=== PATIENT | male | born 1950 | race Caucasian/White ===

== ENCOUNTER 2019-08-16 18:32 | Inpatient (IN) | payer MEDICARE ==
[2019-08-17] MEDS ORDERED: Magnesium Hydroxide (MOM) 30 mL UDC PO PRN (01:45)
[2019-08-17] MEDS ORDERED: Maalox 30 mL Cup PO PRN (01:45)
[2019-08-17] MEDS: Multivitamin Tab PO SCH (08:26)
--- NOTE | 2019-08-17 10:10 | History and Physical ---
History of Present Illness - HPI Chief Complaint: Psychosis HPI: 69 y/o homeless man transferred to [facility] from [facility] for suicidal ideations, alcohol abuse, and 5150 hold, for danger to himself. While in the [facility] ER patient had initial labwork done WBC 7.6 H/H 11.1/34.9 Plat 166K Na 142 K 4.0 Bun 19 Cr 0.7 glu 96 AST 48 ALT 26 Alk carlos [address] head no acute bleed, deep white matter changes consistent with microvascular ischemic disease Patient has a past medical history for bipolar disorder, alcoholism. 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 Psych: Report: Anxiety, Bipolar Musculoskeletal: Report: No Pertinent Hx Rheumatologic: Report: No pertinent Hx Infectious Disease: Report: No Pertinent Hx Renal/: Report: No Pertinent Hx Endocrine: Report: No Pertinent Hx Dermatology: Report: No Pertinent Hx - Past Surgical History Past Surgical History: No pertinent Hx Family Medical History - Family Member Mother History Unknown: Yes Father History Unknown: Yes Social History Smoke: No Alcohol: Heavy Drugs: None Lives: Homeless - Allergies Allergies/Adverse Reactions: Allergies Allergy/AdvReac Type Severity Reaction Status Date / Time No Known Allergies Allergy Verified 08/17/19 01:44 Review of Systems - Review of Systems Constitutional: Report: No Significant Eyes: Report: No Significant ENT: Report: No Significant Respiratory: Report: No Significant Cardiovascular: Report: No Significant Gastrointestinal: Report: No Significant Genitourinary: Report: No Significant Musculoskeletal: Report: No Significant Skin: Report: No Significant Neurological: Report: No Significant Physical Exam - Physical Exam HEENT: Report: Ears Nose Throat within normal limits, Pharnyx within normal limits Neck: Report: Within normal limits Cardiovascular Systems: Report: +s1/s2 noted, Regular, Rate and Rhythm Respiratory: Report: Breath Sounds are within normal limits Abdomen: Report: Non-tender to palpation Back: Report: Inspection of back is within normal limits. Extremities: Report: Non-tender to palpation. Skin: Report: Color of skin is within normal limits Neuro/Psych: Report: Mood affect is within normal limits - Assessment Assessment: 5150 homeless alcoholism suicidal ideation bipolar disorder psychosis - Plan Plan: admit to [facility]
--- NOTE | 2019-08-17 22:16 | Progress Notes ---
DATE: HISTORY OF PRESENT ILLNESS: The patient is a 69-year-old male transferred here from [facility] on a 5150 for being danger to self. The patient endorsed suicidal ideations with plan to overdose on pills, cites a long history of alcohol abuse and homelessness as primary source of distress. The patient states that he has been drinking for over 20 years and is unable to stop. MENTAL STATUS EXAMINATION: GENERAL APPEARANCE AND BEHAVIOR: The patient is resting comfortably in bed, not in acute distress. Good eye contact, cooperative with interview. Speech is normal, rate, rhythm and tone. Mood and affect: The patient described his mood as depressed and anxious. Affect is congruent. Thought process and thought content linear and logical. The patient reports to having suicidal ideations to overdose on pills. Insight and judgment is poor. DIAGNOSTIC IMPRESSION: Major depressive disorder, severe, recurrent, without psychotic features and alcohol abuse. PLAN: We will recommend continuing the patient detox, monitor for any seizures or DTs. [facility]# [id number]
--- NOTE | 2019-08-18 08:02 | General Progress Note ---
Subjective - Review of Systems Service Date: 08/18/19 Subjective: Patient is awake, alert. No acute distress. VS T98.4 P 92 BP 146/86 R 20 Objective - Physical Exam Vitals and I&O: Vital Signs Temp 98.4 F 08/18/19 06:11 Pulse 92 08/18/19 06:11 Resp 20 08/18/19 06:11 BP 146/86 08/18/19 06:11 Pulse Ox 94 08/18/19 06:11 Intake & Output 08/17/19 08/18/19 08/18/19 18:59 06:59 18:59 Intake Total 950 240 Balance 950 240 Intake: Oral 950 240 Other: # Voids 3 2 # Bowel Movements 0 Active Medications: Current Medications Acetaminophen (Tylenol) 650 mg PO Q4HR PRN PRN Reason: Mild Pain / Temp above 100 Stop: 10/16/19 01:44 Al Hydrox/Mg Hydrox/Simethicone (Maalox) 30 ml PO Q4HR PRN PRN Reason: GI DISTRESS Stop: 10/16/19 01:44 Lorazepam (Ativan) 0.5 mg PO Q4HR PRN; Protocol PRN Reason: Anxiety Stop: 09/16/19 01:44 Last Admin: 08/17/19 08:26 Dose: 0.5 mg Magnesium Hydroxide (Milk Of Magnesia) 30 ml PO HS PRN PRN Reason: Constipation Multivitamins/Vitamin C (Theragran) 1 tab PO DAILY JONO Stop: 10/16/19 08:59 Last Admin: 08/17/19 08:26 Dose: 1 tab Zolpidem Tartrate (Ambien) 5 mg PO HS PRN PRN Reason: Insomnia Stop: 10/16/19 01:44 Last Admin: 08/17/19 20:31 Dose: 5 mg Assessment/Plan - Assessment Assessment: 5150 homeless alcoholism suicidal ideation bipolar disorder psychosis BP elevated - Plan Plan: admit to [facility] will add catapres patch
[2019-08-18] MEDS: cloNIDine 0.1 mg/24 hr Tdm TD SCH (08:44)
[2019-08-18] MEDS: Multivitamin Tab PO SCH (08:44)
--- NOTE | 2019-08-19 00:46 | Progress Notes ---
DATE: 08/18/2019 SUBJECTIVE: A 69-year-old male transferred from [facility], endorsed suicidal ideations, plan to overdose on the pills. A long history of alcohol abuse, homelessness, drinking for over 20 years, concerns he may be withdrawing from alcohol. The patient very depressed ____ history of bipolar, alcoholism, homelessness, very poor sleep for 3 weeks prior to coming into the hospital, little family support. Currently has an adult son. No vitals were noted. He does not seem to be having any tremors right now. Pulse rate is relatively stable, currently also on dosing of Ativan. He does not exactly know how much he was drinking, is a little bit unclear. ASSESSMENT: Ongoing suicidal ideation, despairing, suicidal, monitoring also for any withdrawal symptoms from alcohol. Continue Ativan as needed and the clonidine patch. JOB# [id number]
--- NOTE | 2019-08-19 07:47 | General Progress Note ---
Subjective - Review of Systems Service Date: 08/19/19 Subjective: Patient is awake, alert. No acute distress. VS T98.6 P 81 BP 138/78 R 20 Objective - Physical Exam Vitals and I&O: Vital Signs Temp 98.6 F 08/19/19 05:48 Pulse 81 08/19/19 05:48 Resp 20 08/19/19 05:48 BP 138/78 08/19/19 05:48 Pulse Ox 97 08/19/19 05:48 Intake & Output 08/18/19 08/19/19 08/19/19 18:59 06:59 18:59 Intake Total 240 Balance 240 Intake: Oral 240 Other: # Voids 1 2 # Bowel Movements 2 Active Medications: Current Medications Acetaminophen (Tylenol) 650 mg PO Q4HR PRN PRN Reason: Mild Pain (Scale 1-3) Stop: 10/16/19 01:44 Last Admin: 08/18/19 18:05 Dose: 650 mg Acetaminophen (Tylenol) 650 mg PO Q4HR PRN PRN Reason: TEMP ABOVE 100 Stop: 10/17/19 11:33 Al Hydrox/Mg Hydrox/Simethicone (Maalox) 30 ml PO Q4HR PRN PRN Reason: GI DISTRESS Stop: 10/16/19 01:44 Clonidine HCl (Mutqyepj-Ats-6) 1 patch TD Mo JONO Stop: 10/17/19 08:59 Last Admin: 08/18/19 08:44 Dose: 1 patch Lorazepam (Ativan) 0.5 mg PO Q4HR PRN; Protocol PRN Reason: Anxiety Stop: 09/16/19 01:44 Last Admin: 08/18/19 21:27 Dose: 0.5 mg Magnesium Hydroxide (Milk Of Magnesia) 30 ml PO HS PRN PRN Reason: Constipation Multivitamins/Vitamin C (Theragran) 1 tab PO DAILY JONO Stop: 10/16/19 08:59 Last Admin: 08/18/19 08:44 Dose: 1 tab Trazodone HCl (Desyrel) 50 mg PO HS JONO; Protocol Stop: 10/17/19 20:59 Last Admin: 08/18/19 21:27 Dose: 50 mg General: Alert, Oriented x3, No acute distress HEENT: Atraumatic, PERRLA, EOMI Neck: Supple Cardiovascular: Regular rate Lungs: Clear to auscultation Abdomen: Bowel sounds, Soft, no Distended Extremities: no Clubbing, no Cyanosis, no Edema Assessment/Plan - Assessment Assessment: 5150 homeless alcoholism suicidal ideation bipolar disorder psychosis BP improved - Plan Plan: admit to [facility] will add catapres patch
[2019-08-19] MEDS: Multivitamin Tab PO SCH (08:54)
--- NOTE | 2019-08-19 20:54 | Progress Notes ---
DATE: 08/19/2019 SUBJECTIVE: The patient is still withdrawing from alcohol. Mild tremors. Still depressed, hopeless, despairing, ongoing SI, psychological distress, turmoil, mostly keeps to self, withdrawn. We will initiate a 14-day hold. ASSESSMENT: The patient is homeless, despairing, ongoing symptoms, safety concerns. [facility]# [id number]
--- NOTE | 2019-08-20 08:01 | General Progress Note ---
Subjective - Review of Systems Service Date: 08/20/19 Subjective: Patient is awake, alert. No acute distress. VS T98.6 P 83 BP 143/80 R 18 Objective - Physical Exam Vitals and I&O: Vital Signs Temp 98.7 F 08/20/19 06:30 Pulse 83 08/20/19 06:30 Resp 18 08/20/19 06:30 BP 143/80 08/20/19 06:30 Pulse Ox 96 08/20/19 06:30 Intake & Output 08/19/19 08/20/19 08/20/19 18:59 06:59 18:59 Intake Total 800 120 Balance 800 120 Intake: Oral 800 120 Other: # Voids 3 Active Medications: Current Medications Acetaminophen (Tylenol) 650 mg PO Q4HR PRN PRN Reason: Mild Pain (Scale 1-3) Stop: 10/16/19 01:44 Last Admin: 08/19/19 14:58 Dose: 650 mg Acetaminophen (Tylenol) 650 mg PO Q4HR PRN PRN Reason: TEMP ABOVE 100 Stop: 10/17/19 11:33 Al Hydrox/Mg Hydrox/Simethicone (Maalox) 30 ml PO Q4HR PRN PRN Reason: GI DISTRESS Stop: 10/16/19 01:44 Clonidine HCl (Pwllrmmo-Vmc-8) 1 patch TD Mo JONO Stop: 10/17/19 08:59 Last Admin: 08/18/19 08:44 Dose: 1 patch Lorazepam (Ativan) 0.5 mg PO Q4HR PRN; Protocol PRN Reason: Anxiety Stop: 09/16/19 01:44 Last Admin: 08/18/19 21:27 Dose: 0.5 mg Magnesium Hydroxide (Milk Of Magnesia) 30 ml PO HS PRN PRN Reason: Constipation Multivitamins/Vitamin C (Theragran) 1 tab PO DAILY JONO Stop: 10/16/19 08:59 Last Admin: 08/19/19 08:54 Dose: 1 tab Trazodone HCl (Desyrel) 50 mg PO HS JONO; Protocol Stop: 10/17/19 20:59 Last Admin: 08/19/19 20:18 Dose: 50 mg General: Alert, Oriented x3, No acute distress HEENT: Atraumatic, PERRLA, EOMI Neck: Supple Cardiovascular: Regular rate Lungs: Clear to auscultation Abdomen: Bowel sounds, Soft, no Distended Extremities: no Clubbing, no Cyanosis, no Edema Assessment/Plan - Assessment Assessment: 5150 homeless alcoholism suicidal ideation bipolar disorder psychosis BP elevated today - Plan Plan: admit to [facility] will add catapres patch and clonidine PO q8 PRN SBP above 150
[2019-08-20] MEDS: Multivitamin Tab PO SCH (08:14)
--- NOTE | 2019-08-21 03:08 | Progress Notes ---
DATE: The patient seen, chart reviewed, discussed with staff. The patient seems to be withdrawing from alcohol without any complications. No overt tremors noted. Still feeling "weak," erratic sleep, feeling somewhat anxious, also anxious that he has a medical problem, is homeless, nowhere to go, having a hard time walking. Mostly withdrawn, keeps to self, ongoing symptoms, psychological distress, turmoil. The patient noting he has a history of taking Lamictal, BuSpar. We will continue to monitor. The patient will likely need a place to go. Also having a hard time sleeping. We will make appropriate medication adjustments. JOB# [id number]
--- NOTE | 2019-08-21 07:51 | General Progress Note ---
Subjective - Review of Systems Service Date: 08/21/19 Subjective: Patient is awake, alert. No acute distress. Currently on wound care treatment. Poor PO intake VS T97.4 P 76 BP 139/78 R 18 Objective - Physical Exam Vitals and I&O: Vital Signs Temp 97.4 F 08/21/19 06:47 Pulse 76 08/21/19 06:47 Resp 18 08/21/19 06:47 BP 139/78 08/21/19 06:47 Pulse Ox 95 08/21/19 06:47 Intake & Output 08/20/19 08/21/19 08/21/19 18:59 06:59 18:59 Intake Total 240 Output Total 1 Balance 239 Intake: Oral 240 Output: Urine/Stool Mix 1 Other: # Voids 2 Active Medications: Current Medications Acetaminophen (Tylenol) 650 mg PO Q4HR PRN PRN Reason: Mild Pain (Scale 1-3) Stop: 10/16/19 01:44 Last Admin: 08/20/19 21:41 Dose: 650 mg Acetaminophen (Tylenol) 650 mg PO Q4HR PRN PRN Reason: TEMP ABOVE 100 Stop: 10/17/19 11:33 Al Hydrox/Mg Hydrox/Simethicone (Maalox) 30 ml PO Q4HR PRN PRN Reason: GI DISTRESS Stop: 10/16/19 01:44 Clonidine HCl (Ppdhfdty-Ktn-5) 1 patch TD Mo JONO Stop: 10/17/19 08:59 Last Admin: 08/18/19 08:44 Dose: 1 patch Lorazepam (Ativan) 0.5 mg PO Q4HR PRN; Protocol PRN Reason: Anxiety Stop: 09/16/19 01:44 Last Admin: 08/18/19 21:27 Dose: 0.5 mg Magnesium Hydroxide (Milk Of Magnesia) 30 ml PO HS PRN PRN Reason: Constipation Multivitamins/Vitamin C (Theragran) 1 tab PO DAILY JONO Stop: 10/16/19 08:59 Last Admin: 08/20/19 08:14 Dose: 1 tab Trazodone HCl (Desyrel) 50 mg PO HS JONO; Protocol Stop: 10/17/19 20:59 Last Admin: 08/20/19 20:45 Dose: 50 mg General: Alert, Oriented x3, No acute distress HEENT: Atraumatic, PERRLA, EOMI Neck: Supple Cardiovascular: Regular rate Lungs: Clear to auscultation Abdomen: Bowel sounds, Soft, no Distended Extremities: no Clubbing, no Cyanosis, no Edema Assessment/Plan - Assessment Assessment: 5150 homeless alcoholism suicidal ideation bipolar disorder psychosis BP elevated today Pressure ulcers -- Right Buttocks - Plan [facility] will [facility]res patch and clonidine PO q8 PRN SBP above 150 Wound care treatment. will add doxycycline PO Nutritional Asmnt/Malnutr-PDOC - Dietary Evaluation Malnutrition Findings (Please click <Entered> for more info): Nutritional Asmnt/Malnutrition Start: 08/20/19 09: 34 Text: Status: Complete Freq: Protocol: Document 08/20/19 09:39 ANJELICA (Rec: 08/20/19 10:01 ANJELICA ARMSTRONG- [email or web address]) Nutritional Asmnt/Malnutrition Patient General Information Nutritional Screening Low Risk Diagnosis Psychosis Pertinent Medical Hx/Surgical Hx Dementia, anxietry, bipolar Subjective Information Per H&P, patient is homeless and admitted from [facility] for suicidal ideations, alcohol abuse and 5150 hold for danger to himself. Per RN, patient not eating much, will often only eat a cookie. She states he mostly just drinks alcohol at home and doesn't eat much. Patient requesting strawberry flavored protein supplements. Current Diet Order/ Nutrition Support Regular Patient / S.O Not Indicated Pertinent Medications maalox, MOM, Theragran Pertinent Labs No current labs Nutritional Hx/Data Height 1.68 m Height (Calculated Centimeters) 167.6 Current Weight (lbs) 62.142 kg Weight (Calculated Kilograms) 62.1 Weight (Calculated Grams) 95767.2 [place] Body Weight 142 % [place] Body Weight 96 Body Mass Index (BMI) 22.1 Recent Weight Change No Weight Status Approriate GI Symptoms GI Symptoms None Last BM 1/6 x 2 Difficult in: None Food Allergies No Cultural/Ethnic/Sikh Belief none indicated Usual diet at home regular (pt homeless) Skin Integrity/Comment: Juan Waddell, per wound care notes, skin tear on right outer buttock, right upper pelvic rim and left upper pelvic rim. Chronic wound on right knee. Current %PO Poor (25-49%) Estimated Nutritional Goals BEE in Kcals: Using Current wt Calories/Kcals/Kg 62.2kg 25-30 kcal/kg Kcals Calculated ~9392-5674 kcal/day Protein: Using Current wt Protein g/k-1.2 gm/kg Protein Calculated 60-75 gm/day Fluid: ml ~3635-6782 ml/day (1 ml/kcal) Nutritional Problem 1. Problem Problem Inadequate oral intake related to Etiology possible poor appetite/ confusion aeb Signs/Symptoms: PO intake ~25% of meals Intervention/Recommendation Comments 1. Continue regular diet as tolerated by patient 2. Encourage oral intake and provide assistance with meals as needed. 3. Provide Ensure Enlive ( [place]) with each meal to optimize calorie/protein intake. 4 Continue MVI supplementation due to impaired skin integrity. Expected Outcomes/Goals Expected Outcomes/Goals oral intake >75% of meals, weight stable, nutrition related labs WNL, improved skin integrity F/U MR
[2019-08-21] MEDS: Multivitamin Tab PO SCH (09:11)
--- NOTE | 2019-08-22 02:33 | Progress Notes ---
DATE: 08/21/2019 SUBJECTIVE: A 69-year-old male, calm on exam, withdrawn. No alcohol withdrawal signs or symptoms. He is pretty depressed on exam, melancholic. Concerns about anxiety, severe depression. He also has nowhere to go. We are attempting to find him a safe place, a safe discharge plan. Vitals were noted. Mostly keeps to self, self isolation. We will continue to monitor. [facility]# [id number]
--- NOTE | 2019-08-22 08:16 | General Progress Note ---
Subjective - Review of Systems Service Date: 08/22/19 Subjective: Patient is awake, alert. No acute distress. Currently on wound care treatment. Poor PO intake VS T98.6 P 83 BP 146/71 R 18 Objective - Physical Exam Vitals and I&O: Vital Signs Temp 98.6 F 08/22/19 06:21 Pulse 83 08/22/19 06:21 Resp 18 08/22/19 06:21 BP 146/71 08/22/19 06:21 Pulse Ox 99 08/22/19 06:21 Intake & Output 08/21/19 08/22/19 08/22/19 18:59 06:59 18:59 Intake Total 1200 240 Output Total 1 Balance 1200 239 Intake: Oral 1200 240 Output: Urine/Stool Mix 1 Other: # Voids 1 # Bowel Movements 1 Active Medications: Current Medications Acetaminophen (Tylenol) 650 mg PO Q4HR PRN PRN Reason: Mild Pain (Scale 1-3) Stop: 10/16/19 01:44 Last Admin: 08/21/19 17:09 Dose: 650 mg Acetaminophen (Tylenol) 650 mg PO Q4HR PRN PRN Reason: TEMP ABOVE 100 Stop: 10/17/19 11:33 Al Hydrox/Mg Hydrox/Simethicone (Maalox) 30 ml PO Q4HR PRN PRN Reason: GI DISTRESS Stop: 10/16/19 01:44 Clonidine HCl (Zuiecltp-Xky-8) 1 patch TD Mo JONO Stop: 10/17/19 08:59 Last Admin: 08/18/19 08:44 Dose: 1 patch Doxycycline Hyclate (Vibramycin) 100 mg PO Q12HR JONO Stop: 10/20/19 08:59 Last Admin: 08/21/19 21:45 Dose: 100 mg Lorazepam (Ativan) 0.5 mg PO Q4HR PRN; Protocol PRN Reason: Anxiety Stop: 09/16/19 01:44 Last Admin: 08/18/19 21:27 Dose: 0.5 mg Magnesium Hydroxide (Milk Of Magnesia) 30 ml PO HS PRN PRN Reason: Constipation Multivitamins/Vitamin C (Theragran) 1 tab PO DAILY JONO Stop: 10/16/19 08:59 Last Admin: 08/21/19 09:11 Dose: 1 tab Trazodone HCl (Desyrel) 50 mg PO HS JONO; Protocol Stop: 10/17/19 20:59 Last Admin: 08/21/19 21:45 Dose: 50 mg General: Alert, Oriented x3, No acute distress HEENT: Atraumatic, PERRLA, EOMI Neck: Supple Cardiovascular: Regular rate Lungs: Clear to auscultation Abdomen: Bowel sounds, Soft, no Distended Extremities: no Clubbing, no Cyanosis, no Edema Assessment/Plan - Assessment Assessment: 5150 homeless alcoholism suicidal ideation bipolar disorder psychosis BP stable today Pressure ulcers -- Right Buttocks - Plan Plan: admit to [facility] will add catapres patch and clonidine PO q8 PRN SBP above 150 Wound care treatment. will add doxycycline PO Nutritional Asmnt/Malnutr-PDOC - Dietary Evaluation Malnutrition Findings (Please click <Entered> for more info): Nutritional Asmnt/Malnutrition Start: 08/20/19 09: 34 Text: Status: Complete Freq: Protocol: Document 08/20/19 09:39 ANJELICA (Rec: 08/20/19 10:01 ANJELICA ARMSTRONG- [email or web address]) Nutritional Asmnt/Malnutrition Patient General Information Nutritional Screening Low Risk Diagnosis Psychosis Pertinent Medical Hx/Surgical Hx Dementia, anxietry, bipolar Subjective Information Per H&P, patient is homeless and admitted from [facility] for suicidal ideations, alcohol abuse and 5150 hold for danger to himself. Per RN, patient not eating much, will often only eat a cookie. She states he mostly just drinks alcohol at home and doesn't eat much. Patient requesting strawberry flavored protein supplements. Current Diet Order/ Nutrition Support Regular Patient / S.O Not Indicated Pertinent Medications maalox, MOM, Theragran Pertinent Labs No current labs Nutritional Hx/Data Height 1.68 m Height (Calculated Centimeters) 167.6 Current Weight (lbs) 62.142 kg Weight (Calculated Kilograms) 62.1 Weight (Calculated Grams) 40143.2 [place] Body Weight 142 % [place] Body Weight 96 Body Mass Index (BMI) 22.1 Recent Weight Change No Weight Status Approriate GI Symptoms GI Symptoms None Last BM 1/6 x 2 Difficult in: None Food Allergies No Cultural/Ethnic/Rastafarian Belief none indicated Usual diet at home regular (pt homeless) Skin Integrity/Comment: Juan Waddell, per wound care notes, skin tear on right outer buttock, right upper pelvic rim and left upper pelvic rim. Chronic wound on right knee. Current %PO Poor (25-49%) Estimated Nutritional Goals BEE in Kcals: Using Current wt Calories/Kcals/Kg 62.2kg 25-30 kcal/kg Kcals Calculated ~0044-3434 kcal/day Protein: Using Current wt Protein g/k-1.2 gm/kg Protein Calculated 60-75 gm/day Fluid: ml ~4749-4726 ml/day (1 ml/kcal) Nutritional Problem 1. Problem Problem Inadequate oral intake related to Etiology possible poor appetite/ confusion aeb Signs/Symptoms: PO intake ~25% of meals Intervention/Recommendation Comments 1. Continue regular diet as tolerated by patient 2. Encourage oral intake and provide assistance with meals as needed. 3. Provide Ensure Enlive ( [place]) with each meal to optimize calorie/protein intake. 4 Continue MVI supplementation due to impaired skin integrity. Expected Outcomes/Goals Expected Outcomes/Goals oral intake >75% of meals, weight stable, nutrition related labs WNL, improved skin integrity F/U MR
[2019-08-22] MEDS: Multivitamin Tab PO SCH (09:18)
--- NOTE | 2019-08-22 22:56 | Progress Notes ---
DATE: 08/22/2019 SUBJECTIVE: The patient in the hospital. No alcohol withdrawal symptoms, depressed, withdrawn, weak on exam. We are working on placement, trying to get him over to [place]. Unclear if they can accept the patient. The patient really cannot take care of himself. He is just frankly too weak. PLAN: We will continue to monitor ongoing concerns about his ability to take care for his basic needs. [facility]# [id number]
--- NOTE | 2019-08-23 08:07 | General Progress Note ---
Subjective - Review of Systems Service Date: 08/23/19 Subjective: Patient is awake, alert. No acute distress. Currently on wound care treatment. Poor PO intake VS T97.6 P 74 BP 152/80 R 19 Objective - Physical Exam Vitals and I&O: Vital Signs Temp 97.6 F 08/23/19 06:24 Pulse 74 08/23/19 06:24 Resp 19 08/23/19 06:24 BP 152/80 08/23/19 06:24 Pulse Ox 94 08/23/19 06:24 Intake & Output 08/22/19 08/23/19 08/23/19 18:59 06:59 18:59 Intake Total 960 300 Output Total 1 Balance 960 299 Intake: Oral 960 300 Output: Urine/Stool Mix 1 Other: # Voids 4 1 # Bowel Movements 1 0 Active Medications: Current Medications Acetaminophen (Tylenol) 650 mg PO Q4HR PRN PRN Reason: Mild Pain (Scale 1-3) Stop: 10/16/19 01:44 Last Admin: 08/21/19 17:09 Dose: 650 mg Acetaminophen (Tylenol) 650 mg PO Q4HR PRN PRN Reason: TEMP ABOVE 100 Stop: 10/17/19 11:33 Al Hydrox/Mg Hydrox/Simethicone (Maalox) 30 ml PO Q4HR PRN PRN Reason: GI DISTRESS Stop: 10/16/19 01:44 Clonidine HCl (Jwfnkjgy-Ezd-6) 1 patch TD Mo JONO Stop: 10/17/19 08:59 Last Admin: 08/18/19 08:44 Dose: 1 patch Doxycycline Hyclate (Vibramycin) 100 mg PO Q12HR JONO Stop: 10/20/19 08:59 Last Admin: 08/22/19 21:12 Dose: 100 mg Lorazepam (Ativan) 0.5 mg PO Q4HR PRN; Protocol PRN Reason: Anxiety Stop: 09/16/19 01:44 Last Admin: 08/18/19 21:27 Dose: 0.5 mg Magnesium Hydroxide (Milk Of Magnesia) 30 ml PO HS PRN PRN Reason: Constipation Multivitamins/Vitamin C (Theragran) 1 tab PO DAILY JONO Stop: 10/16/19 08:59 Last Admin: 08/22/19 09:18 Dose: 1 tab Trazodone HCl (Desyrel) 50 mg PO HS JONO; Protocol Stop: 10/17/19 20:59 Last Admin: 08/22/19 21:13 Dose: 50 mg General: Alert, Oriented x3, No acute distress HEENT: Atraumatic, PERRLA, EOMI Neck: Supple Cardiovascular: Regular rate Lungs: Clear to auscultation Abdomen: Bowel sounds, Soft, no Distended Extremities: no Clubbing, no Cyanosis, no Edema Assessment/Plan - Assessment Assessment: 5150 homeless alcoholism suicidal ideation bipolar disorder psychosis BP stable today Pressure ulcers -- Right Buttocks - Plan Plan: admit to ger[facility]che will add catapres patch and clonidine PO q8 PRN SBP above 150 Wound care treatment. will add doxycycline PO Nutritional Asmnt/Malnutr-PDOC - Dietary Evaluation Malnutrition Findings (Please click <Entered> for more info): Nutritional Asmnt/Malnutrition Start: 08/20/19 09: 34 Text: Status: Complete Freq: Protocol: Document 08/20/19 09:39 ANJELICA (Rec: 08/20/19 10:01 ANJELICA ARMSTRONG- FNS1) Nutritional Asmnt/Malnutrition Patient General Information Nutritional Screening Low Risk Diagnosis Psychosis Pertinent Medical Hx/Surgical Hx Dementia, anxietry, bipolar Subjective Information Per H&P, patient is homeless and admitted from [facility] for suicidal ideations, alcohol abuse and 5150 hold for danger to himself. Per RN, patient not eating much, will often only eat a cookie. She states he mostly just drinks alcohol at home and doesn't eat much. Patient requesting strawberry flavored protein supplements. Current Diet Order/ Nutrition Support Regular Patient / S.O Not Indicated Pertinent Medications maalox, MOM, Theragran Pertinent Labs No current labs Nutritional Hx/Data Height 1.68 m Height (Calculated Centimeters) 167.6 Current Weight (lbs) 62.142 kg Weight (Calculated Kilograms) 62.1 Weight (Calculated Grams) 20873.2 [place] Body Weight 142 % [place] Body Weight 96 Body Mass Index (BMI) 22.1 Recent Weight Change No Weight Status Approriate GI Symptoms GI Symptoms None Last BM 1/6 x 2 Difficult in: None Food Allergies No Cultural/Ethnic/Hinduism Belief none indicated Usual diet at home regular (pt homeless) Skin Integrity/Comment: Juan Waddell, per wound care notes, skin tear on right outer buttock, right upper pelvic rim and left upper pelvic rim. Chronic wound on right knee. Current %PO Poor (25-49%) Estimated Nutritional Goals BEE in Kcals: Using Current wt Calories/Kcals/Kg 62.2kg 25-30 kcal/kg Kcals Calculated ~7586-2339 kcal/day Protein: Using Current wt Protein g/k-1.2 gm/kg Protein Calculated 60-75 gm/day Fluid: ml ~3699-5769 ml/day (1 ml/kcal) Nutritional Problem 1. Problem Problem Inadequate oral intake related to Etiology possible poor appetite/ confusion aeb Signs/Symptoms: PO intake ~25% of meals Intervention/Recommendation Comments 1. Continue regular diet as tolerated by patient 2. Encourage oral intake and provide assistance with meals as needed. 3. Provide Ensure Enlive ( [place]) with each meal to optimize calorie/protein intake. 4 Continue MVI supplementation due to impaired skin integrity. Expected Outcomes/Goals Expected Outcomes/Goals oral intake >75% of meals, weight stable, nutrition related labs WNL, improved skin integrity F/U MR
[2019-08-23] MEDS: Multivitamin Tab PO SCH (08:58)
--- NOTE | 2019-08-23 23:34 | Progress Notes ---
DATE: 08/23/[address] Schulz. IDENTIFYING DATA: A 69-year-old male with history of suicidal ideation with plan to overdose. Today on pzum-zy-gexe evaluation, continues to present withdrawn, sad. Alcohol withdrawal symptoms noted by the nursing staff. MENTAL STATUS EXAMINATION: Still sad, withdrawn, disengaged. ASSESSMENT AND PLAN: Major depressive disorder. We will continue with primary psychiatrist's treatment plan and goals, which includes monitoring for withdrawal symptoms. [facility]# [id number] [id number]
--- NOTE | 2019-08-24 08:17 | General Progress Note ---
Subjective - Review of Systems Service Date: 08/24/19 Subjective: Patient is awake, alert. No acute distress. Currently on wound care treatment. Poor PO intake VS T97.8 P 70 BP 133/85 R 18 Objective - Physical Exam Vitals and I&O: Vital Signs Temp 97.8 F 08/24/19 06:42 Pulse 70 08/24/19 06:42 Resp 18 08/24/19 06:42 BP 133/85 08/24/19 06:42 Pulse Ox 96 08/24/19 06:42 Intake & Output 08/23/19 08/24/19 08/24/19 18:59 06:59 18:59 Intake Total 860 60 Balance 860 60 Intake: Oral 860 60 Other: # Voids 3 2 # Bowel Movements 0 0 Active Medications: Current Medications Acetaminophen (Tylenol) 650 mg PO Q4HR PRN PRN Reason: Mild Pain (Scale 1-3) Stop: 10/16/19 01:44 Last Admin: 08/23/19 18:10 Dose: 650 mg Acetaminophen (Tylenol) 650 mg PO Q4HR PRN PRN Reason: TEMP ABOVE 100 Stop: 10/17/19 11:33 Al Hydrox/Mg Hydrox/Simethicone (Maalox) 30 ml PO Q4HR PRN PRN Reason: GI DISTRESS Stop: 10/16/19 01:44 Clonidine HCl (Qzbwyeze-Rqp-7) 1 patch TD Mo JONO Stop: 10/17/19 08:59 Last Admin: 08/18/19 08:44 Dose: 1 patch Doxycycline Hyclate (Vibramycin) 100 mg PO Q12HR JONO Stop: 10/20/19 08:59 Last Admin: 08/23/19 21:11 Dose: 100 mg Lorazepam (Ativan) 0.5 mg PO Q4HR PRN; Protocol PRN Reason: Anxiety Stop: 09/16/19 01:44 Last Admin: 08/18/19 21:27 Dose: 0.5 mg Multivitamins/Vitamin C (Theragran) 1 tab PO DAILY JONO Stop: 10/16/19 08:59 Last Admin: 08/23/19 08:58 Dose: 1 tab Trazodone HCl (Desyrel) 50 mg PO HS JONO; Protocol Stop: 10/17/19 20:59 Last Admin: 08/23/19 21:11 Dose: 50 mg General: Alert, Oriented x3, No acute distress HEENT: Atraumatic, PERRLA, EOMI Neck: Supple Cardiovascular: Regular rate Lungs: Clear to auscultation Abdomen: Bowel sounds, Soft, no Distended Extremities: no Clubbing, no Cyanosis, no Edema Assessment/Plan - Assessment Assessment: 5150 homeless alcoholism suicidal ideation bipolar disorder psychosis BP stable today Pressure ulcers -- Right Buttocks ... continue current treatment. - Plan Plan: admit to [facility] will add catapres patch and clonidine PO q8 PRN SBP above 150 Wound care treatment. will add doxycycline PO Nutritional Asmnt/Malnutr-PDOC - Dietary Evaluation Malnutrition Findings (Please click <Entered> for more info): Nutritional Asmnt/Malnutrition Start: 08/20/19 09: 34 Text: Status: Complete Freq: Protocol: Document 08/20/19 09:39 MMALIREZA (Rec: 08/20/19 10:01 MMALIREZA ARMSTRONG- [email or web address]) Nutritional Asmnt/Malnutrition Patient General Information Nutritional Screening Low Risk Diagnosis Psychosis Pertinent Medical Hx/Surgical Hx Dementia, anxietry, bipolar Subjective Information Per H&P, patient is homeless and admitted from [facility] for suicidal ideations, alcohol abuse and 5150 hold for danger to himself. Per RN, patient not eating much, will often only eat a cookie. She states he mostly just drinks alcohol at home and doesn't eat much. Patient requesting strawberry flavored protein supplements. Current Diet Order/ Nutrition Support Regular Patient / S.O Not Indicated Pertinent Medications maalox, MOM, Theragran Pertinent Labs No current labs Nutritional Hx/Data Height 1.68 m Height (Calculated Centimeters) 167.6 Current Weight (lbs) 62.142 kg Weight (Calculated Kilograms) 62.1 Weight (Calculated Grams) 28916.2 [place] Body Weight 142 % [place] Body Weight 96 Body Mass Index (BMI) 22.1 Recent Weight Change No Weight Status Approriate GI Symptoms GI Symptoms None Last BM 1/6 x 2 Difficult in: None Food Allergies No Cultural/Ethnic/Sikh Belief none indicated Usual diet at home regular (pt homeless) Skin Integrity/Comment: Juan Waddell, per wound care notes, skin tear on right outer buttock, right upper pelvic rim and left upper pelvic rim. Chronic wound on right knee. Current %PO Poor (25-49%) Estimated Nutritional Goals BEE in Kcals: Using Current wt Calories/Kcals/Kg 62.2kg 25-30 kcal/kg Kcals Calculated ~0975-7140 kcal/day Protein: Using Current wt Protein g/k-1.2 gm/kg Protein Calculated 60-75 gm/day Fluid: ml ~1217-1005 ml/day (1 ml/kcal) Nutritional Problem 1. Problem Problem Inadequate oral intake related to Etiology possible poor appetite/ confusion aeb Signs/Symptoms: PO intake ~25% of meals Intervention/Recommendation Comments 1. Continue regular diet as tolerated by patient 2. Encourage oral intake and provide assistance with meals as needed. 3. Provide Ensure Enlive ( [place]) with each meal to optimize calorie/protein intake. 4 Continue MVI supplementation due to impaired skin integrity. Expected Outcomes/Goals Expected Outcomes/Goals oral intake >75% of meals, weight stable, nutrition related labs WNL, improved skin integrity F/U MR
--- NOTE | 2019-08-24 08:53 | Progress Notes ---
DATE: 08/24/[address] Schulz. Today on wfda-ss-saco evaluation, he is observed to be avoiding disengage. No withdrawal symptoms reported in the last 24 hours. MENTAL STATUS EXAMINATION: Disengaged, withdrawn, melancholic. ASSESSMENT AND PLAN: Major depressive disorder, severe. We will continue with primary psychiatrist's treatment plan and goals and to monitor for residual symptoms. [facility]# [id number]
[2019-08-24] MEDS: Multivitamin Tab PO SCH (08:57)
--- NOTE | 2019-08-25 08:06 | General Progress Note ---
Subjective - Review of Systems Service Date: 08/25/19 Subjective: Patient is awake, alert. No acute distress. Currently on wound care treatment. Poor PO intake VS T 98.2 P 79 BP 132/84 R 20 Objective - Physical Exam Vitals and I&O: Vital Signs Temp 98.2 F 08/25/19 06:03 Pulse 79 08/25/19 06:03 Resp 18 08/25/19 07:36 BP 132/84 08/25/19 06:03 Pulse Ox 96 08/25/19 06:03 Intake & Output 08/24/19 08/25/19 08/25/19 18:59 06:59 18:59 Intake Total 240 Balance 240 Intake: Oral 240 Other: # Voids 2 2 # Bowel Movements 6 Active Medications: Current Medications Acetaminophen (Tylenol) 650 mg PO Q4HR PRN PRN Reason: Mild Pain (Scale 1-3) Stop: 10/16/19 01:44 Last Admin: 08/25/19 06:26 Dose: 650 mg Acetaminophen (Tylenol) 650 mg PO Q4HR PRN PRN Reason: TEMP ABOVE 100 Stop: 10/17/19 11:33 Al Hydrox/Mg Hydrox/Simethicone (Maalox) 30 ml PO Q4HR PRN PRN Reason: GI DISTRESS Stop: 10/16/19 01:44 Clonidine HCl (Gzgxtxav-Njn-0) 1 patch TD Mo JONO Stop: 10/17/19 08:59 Last Admin: 08/18/19 08:44 Dose: 1 patch Doxycycline Hyclate (Vibramycin) 100 mg PO Q12HR JONO Stop: 10/20/19 08:59 Last Admin: 08/24/19 21:11 Dose: 100 mg Lorazepam (Ativan) 0.5 mg PO Q4HR PRN; Protocol PRN Reason: Anxiety Stop: 09/16/19 01:44 Last Admin: 08/18/19 21:27 Dose: 0.5 mg Multivitamins/Vitamin C (Theragran) 1 tab PO DAILY JONO Stop: 10/16/19 08:59 Last Admin: 08/24/19 08:57 Dose: 1 tab Trazodone HCl (Desyrel) 50 mg PO HS JONO; Protocol Stop: 10/17/19 20:59 Last Admin: 08/24/19 21:11 Dose: 50 mg General: Alert, Oriented x3, No acute distress HEENT: Atraumatic, PERRLA, EOMI Neck: Supple Cardiovascular: Regular rate Lungs: Clear to auscultation Abdomen: Bowel sounds, Soft, no Distended Extremities: no Clubbing, no Cyanosis, no Edema Assessment/Plan - Assessment Assessment: 5150 homeless alcoholism suicidal ideation bipolar disorder psychosis BP stable today Pressure ulcers -- Right Buttocks ... continue current treatment. constipation ... on stool softeners, KUB pending - Plan Plan: admit to ger[facility] will add catapres patch and clonidine PO q8 PRN SBP above 150 Wound care treatment. will add doxycycline PO KUB taken, results pending Nutritional Asmnt/Malnutr-PDOC - Dietary Evaluation Malnutrition Findings (Please click <Entered> for more info): Nutritional Asmnt/Malnutrition Start: 08/20/19 09: 34 Text: Status: Complete Freq: Protocol: Document 08/20/19 09:39 ANJELICA (Rec: 08/20/19 10:01 ANJELICA ARMSTRONG- FNS1) Nutritional Asmnt/Malnutrition Patient General Information Nutritional Screening Low Risk Diagnosis Psychosis Pertinent Medical Hx/Surgical Hx Dementia, anxietry, bipolar Subjective Information Per H&P, patient is homeless and admitted from [facility] for suicidal ideations, alcohol abuse and 5150 hold for danger to himself. Per RN, patient not eating much, will often only eat a cookie. She states he mostly just drinks alcohol at home and doesn't eat much. Patient requesting strawberry flavored protein supplements. Current Diet Order/ Nutrition Support Regular Patient / S.O Not Indicated Pertinent Medications maalox, MOM, Theragran Pertinent Labs No current labs Nutritional Hx/Data Height 1.68 m Height (Calculated Centimeters) 167.6 Current Weight (lbs) 62.142 kg Weight (Calculated Kilograms) 62.1 Weight (Calculated Grams) 04010.2 [place] Body Weight 142 % [place] Body Weight 96 Body Mass Index (BMI) 22.1 Recent Weight Change No Weight Status Approriate GI Symptoms GI Symptoms None Last BM 1/6 x 2 Difficult in: None Food Allergies No Cultural/Ethnic/Taoism Belief none indicated Usual diet at home regular (pt homeless) Skin Integrity/Comment: Juan Waddell, per wound care notes, skin tear on right outer buttock, right upper pelvic rim and left upper pelvic rim. Chronic wound on right knee. Current %PO Poor (25-49%) Estimated Nutritional Goals BEE in Kcals: Using Current wt Calories/Kcals/Kg 62.2kg 25-30 kcal/kg Kcals Calculated ~0503-6906 kcal/day Protein: Using Current wt Protein g/k-1.2 gm/kg Protein Calculated 60-75 gm/day Fluid: ml ~0337-0191 ml/day (1 ml/kcal) Nutritional Problem 1. Problem Problem Inadequate oral intake related to Etiology possible poor appetite/ confusion aeb Signs/Symptoms: PO intake ~25% of meals Intervention/Recommendation Comments 1. Continue regular diet as tolerated by patient 2. Encourage oral intake and provide assistance with meals as needed. 3. Provide Ensure Enlive ( [place]) with each meal to optimize calorie/protein intake. 4 Continue MVI supplementation due to impaired skin integrity. Expected Outcomes/Goals Expected Outcomes/Goals oral intake >75% of meals, weight stable, nutrition related labs WNL, improved skin integrity F/U MR
[2019-08-25] MEDS: cloNIDine 0.1 mg/24 hr Tdm TD SCH (09:05)
[2019-08-25] MEDS: Multivitamin Tab PO SCH (09:07)
--- NOTE | 2019-08-25 13:00 | Diagnostic Imaging Report ---
KUB abdominal film HISTORY: Pain, abdominal distention The exam demonstrates nondilated bowel loops which appear to be markedly displaced upward out of the pelvis. Suggestion of density over the lower abdomen and pelvis. Findings may be related to a severely distended urinary bladder. Clinical correlation and correlation with urine output needed. An ultrasound exam would provide additional assessment. No free intraperitoneal air. No abnormal calcifications. Degenerative changes seen to the spine. IMPRESSION: 1. Nondilated bowel displaced into the upper abdomen. Findings may be related to a severely distended urinary bladder. Clinical correlation and correlation with urine output needed. An ultrasound exam would provide additional assessment if needed.
--- NOTE | 2019-08-26 00:53 | Progress Notes ---
DATE: 08/25/2019 SUBJECTIVE: The patient withdrawn, mostly depressed, isolative to self, mostly keeps to himself. No behavioral outbursts, seems to be approaching his baseline. We have nowhere to send him to have bed availability on Sunday of this week. He has been accepted to [facility] in [place]. Fair sleep, fair appetite. PLAN: We will continue to monitor closely. [facility]# [id number]
--- NOTE | 2019-08-26 08:19 | General Progress Note ---
Subjective - Review of Systems Service Date: 08/26/19 Subjective: Patient is awake, alert. No acute distress. Currently on wound care treatment. BM today. Able to urinate VS T 98.1 P 72 BP 126/74 R 20 Objective - Physical Exam Vitals and I&O: Vital Signs Temp 98.1 F 08/26/19 06:08 Pulse 72 08/26/19 06:08 Resp 20 08/26/19 07:32 BP 126/74 08/26/19 06:08 Pulse Ox 96 08/26/19 06:08 Intake & Output 08/25/19 08/26/19 08/26/19 18:59 06:59 18:59 Intake Total 1200 240 Output Total 1 Balance 1200 239 Intake: Oral 1200 240 Output: Urine/Stool Mix 1 Other: # Voids 3 3 # Bowel Movements 2 0 Active Medications: Current Medications Acetaminophen (Tylenol) 650 mg PO Q4HR PRN PRN Reason: Mild Pain (Scale 1-3) Stop: 10/16/19 01:44 Last Admin: 08/25/19 18:15 Dose: 650 mg Acetaminophen (Tylenol) 650 mg PO Q4HR PRN PRN Reason: TEMP ABOVE 100 Stop: 10/17/19 11:33 Al Hydrox/Mg Hydrox/Simethicone (Maalox) 30 ml PO Q4HR PRN PRN Reason: GI DISTRESS Stop: 10/16/19 01:44 Clonidine HCl (Weaxlnui-Uxc-1) 1 patch TD Mo JONO Stop: 10/17/19 08:59 Last Admin: 08/25/19 09:05 Dose: 1 patch Doxycycline Hyclate (Vibramycin) 100 mg PO Q12HR JONO Stop: 10/20/19 08:59 Last Admin: 08/25/19 20:53 Dose: 100 mg Lorazepam (Ativan) 0.5 mg PO Q4HR PRN; Protocol PRN Reason: Anxiety Stop: 09/16/19 01:44 Last Admin: 08/18/19 21:27 Dose: 0.5 mg Multivitamins/Vitamin C (Theragran) 1 tab PO DAILY JONO Stop: 10/16/19 08:59 Last Admin: 08/25/19 09:07 Dose: 1 tab Trazodone HCl (Desyrel) 50 mg PO HS JONO; Protocol Stop: 10/17/19 20:59 Last Admin: 08/25/19 20:54 Dose: 50 mg General: Alert, Oriented x3, No acute distress HEENT: Atraumatic, PERRLA, EOMI Neck: Supple Cardiovascular: Regular rate Lungs: Clear to auscultation Abdomen: Bowel sounds, Soft, no Distended Extremities: no Clubbing, no Cyanosis, no Edema Assessment/Plan - Assessment Assessment: 5150 homeless alcoholism suicidal ideation bipolar disorder psychosis BP stable today Pressure ulcers -- Right Buttocks ... continue current treatment. constipation ... on stool softeners BPH ... on Flomax - Plan Plan: admit to geropsyche will add catapres patch and clonidine PO q8 PRN SBP above 150 Wound care treatment. will add doxycycline PO KUB taken, results pending Nutritional Asmnt/Malnutr-PDOC - Dietary Evaluation Malnutrition Findings (Please click <Entered> for more info): Nutritional Asmnt/Malnutrition Start: 08/20/19 09: 34 Text: Status: Complete Freq: Protocol: Document 08/20/19 09:39 ANJELICA (Rec: 08/20/19 10:01 ANJELICA ARMSTRONG- FNS1) Nutritional Asmnt/Malnutrition Patient General Information Nutritional Screening Low Risk Diagnosis Psychosis Pertinent Medical Hx/Surgical Hx Dementia, anxietry, bipolar Subjective Information Per H&P, patient is homeless and admitted from [facility] for suicidal ideations, alcohol abuse and 5150 hold for danger to himself. Per RN, patient not eating much, will often only eat a cookie. She states he mostly just drinks alcohol at home and doesn't eat much. Patient requesting strawberry flavored protein supplements. Current Diet Order/ Nutrition Support Regular Patient / S.O Not Indicated Pertinent Medications maalox, MOM, Theragran Pertinent Labs No current labs Nutritional Hx/Data Height 1.68 m Height (Calculated Centimeters) 167.6 Current Weight (lbs) 62.142 kg Weight (Calculated Kilograms) 62.1 Weight (Calculated Grams) 21512.2 [place] Body Weight 142 % [place] Body Weight 96 Body Mass Index (BMI) 22.1 Recent Weight Change No Weight Status Approriate GI Symptoms GI Symptoms None Last BM 1/6 x 2 Difficult in: None Food Allergies No Cultural/Ethnic/Mu-Ism Belief none indicated Usual diet at home regular (pt homeless) Skin Integrity/Comment: Juan Waddell, per wound care notes, skin tear on right outer buttock, right upper pelvic rim and left upper pelvic rim. Chronic wound on right knee. Current %PO Poor (25-49%) Estimated Nutritional Goals BEE in Kcals: Using Current wt Calories/Kcals/Kg 62.2kg 25-30 kcal/kg Kcals Calculated ~0578-9978 kcal/day Protein: Using Current wt Protein g/k-1.2 gm/kg Protein Calculated 60-75 gm/day Fluid: ml ~2795-8493 ml/day (1 ml/kcal) Nutritional Problem 1. Problem Problem Inadequate oral intake related to Etiology possible poor appetite/ confusion aeb Signs/Symptoms: PO intake ~25% of meals Intervention/Recommendation Comments 1. Continue regular diet as tolerated by patient 2. Encourage oral intake and provide assistance with meals as needed. 3. Provide Ensure Enlive ( [place]) with each meal to optimize calorie/protein intake. 4 Continue MVI supplementation due to impaired skin integrity. Expected Outcomes/Goals Expected Outcomes/Goals oral intake >75% of meals, weight stable, nutrition related labs WNL, improved skin integrity F/U MR
--- NOTE | 2019-08-26 09:23 | Progress Notes ---
DATE: 08/26/2019 SUBJECTIVE: The patient slept for about 7 hours, calm and cooperative on exam, still preoccupied, depressed, knows where he is and why he is here, he knows the year, is not quite sure about the month, the day of the week. Seems to be approaching his baseline. We are waiting for a bed to open tomorrow at [facility]. Otherwise, we will try to discharge him tomorrow. No behavioral disturbances. No evidence of any withdrawal symptoms. No SI. JOB# [id number]
[2019-08-26] MEDS: Multivitamin Tab PO SCH (09:29)
--- NOTE | 2019-08-27 08:36 | General Progress Note ---
Subjective - Review of Systems Service Date: 08/27/19 Subjective: Patient is awake, alert. No acute distress. Currently on wound care treatment. BM today. Able to urinate VS T 97.6 P 76 BP 114/69 R 19 Objective - Physical Exam Vitals and I&O: Vital Signs Temp 97.6 F 08/27/19 06:07 Pulse 76 08/27/19 06:07 Resp 19 08/27/19 06:07 BP 114/69 08/27/19 06:07 Pulse Ox 97 08/27/19 06:07 Intake & Output 08/26/19 08/27/19 08/27/19 18:59 06:59 18:59 Intake Total 1300 120 Balance 1300 120 Intake: Oral 1300 120 Other: # Voids 3 3 # Bowel Movements 0 0 Active Medications: Current Medications Acetaminophen (Tylenol) 650 mg PO Q4HR PRN PRN Reason: Mild Pain (Scale 1-3) Stop: 10/16/19 01:44 Last Admin: 08/25/19 18:15 Dose: 650 mg Acetaminophen (Tylenol) 650 mg PO Q4HR PRN PRN Reason: TEMP ABOVE 100 Stop: 10/17/19 11:33 Al Hydrox/Mg Hydrox/Simethicone (Maalox) 30 ml PO Q4HR PRN PRN Reason: GI DISTRESS Stop: 10/16/19 01:44 Clonidine HCl (Lrirljei-Muc-8) 1 patch TD Mo [facility] Stop: 10/17/19 08:59 Last Admin: 08/25/19 09:05 Dose: 1 patch Doxycycline Hyclate (Vibramycin) 100 mg PO Q12HR [facility]1983 Stop: 10/20/19 08:59 Last Admin: 08/26/19 20:59 Dose: 100 mg Lorazepam (Ativan) 0.5 mg PO Q4HR PRN; Protocol PRN Reason: Anxiety Stop: 09/16/19 01:44 Last Admin: 08/18/19 21:27 Dose: 0.5 mg Multivitamins/Vitamin C (Theragran) 1 tab PO DAILY JONO Stop: 10/16/19 08:59 Last Admin: 08/26/19 09:29 Dose: 1 tab Tamsulosin HCl (Flomax) 0.4 mg PO DAILY [facility] Stop: 10/25/19 08:59 Last Admin: 08/26/19 09:30 Dose: 0.4 mg Trazodone HCl (Desyrel) 50 mg PO HS JONO; Protocol Stop: 10/17/19 20:59 Last Admin: 08/26/19 20:59 Dose: 50 mg General: Alert, Oriented x3, No acute distress HEENT: Atraumatic, PERRLA, EOMI Neck: Supple Cardiovascular: Regular rate Lungs: Clear to auscultation Abdomen: Bowel sounds, Soft, no Distended Extremities: no Clubbing, no Cyanosis, no Edema Assessment/Plan - Assessment Assessment: 5150 homeless alcoholism suicidal ideation bipolar disorder psychosis BP stable today Pressure ulcers -- Right Buttocks ... continue current treatment. constipation ... on stool softeners BPH ... on Flomax - Plan Plan: admit to [facility] will add catapres patch and clonidine PO q8 PRN SBP above 150 Wound care treatment. will add doxycycline PO KUB taken, results pending Nutritional Asmnt/Malnutr-PDOC - Dietary Evaluation Malnutrition Findings (Please click <Entered> for more info): Nutritional Asmnt/Malnutrition Start: 08/20/19 09: 34 Text: Status: Complete Freq: Protocol: Document 08/20/19 09:39 ANJELICA (Rec: 08/20/19 10:01 ANJELICA ARMSTRONG- [email or web address]) Nutritional Asmnt/Malnutrition Patient General Information Nutritional Screening Low Risk Diagnosis Psychosis Pertinent Medical Hx/Surgical Hx Dementia, anxietry, bipolar Subjective Information Per H&P, patient is homeless and admitted from [facility] for suicidal ideations, alcohol abuse and 5150 hold for danger to himself. Per RN, patient not eating much, will often only eat a cookie. She states he mostly just drinks alcohol at home and doesn't eat much. Patient requesting strawberry flavored protein supplements. Current Diet Order/ Nutrition Support Regular Patient / S.O Not Indicated Pertinent Medications maalox, MOM, Theragran Pertinent Labs No current labs Nutritional Hx/Data Height 1.68 m Height (Calculated Centimeters) 167.6 Current Weight (lbs) 62.142 kg Weight (Calculated Kilograms) 62.1 Weight (Calculated Grams) 41833.2 Priddy Body Weight 142 % Priddy Body Weight 96 Body Mass Index (BMI) 22.1 Recent Weight Change No Weight Status Approriate GI Symptoms GI Symptoms None Last BM 08/18 x 2 Difficult in: None Food Allergies No Cultural/Ethnic/Restorationism Belief none indicated Usual diet at home regular (pt homeless) Skin Integrity/Comment: Juan 17, per wound care notes, skin tear on right outer buttock, right upper pelvic rim and left upper pelvic rim. Chronic wound on right knee. Current %PO Poor (25-49%) Estimated Nutritional Goals BEE in Kcals: Using Current wt Calories/Kcals/Kg 62.2kg 25-30 kcal/kg Kcals Calculated ~9332-1948 kcal/day Protein: Using Current wt Protein g/k-1.2 gm/kg Protein Calculated 60-75 gm/day Fluid: ml ~1175-7088 ml/day (1 ml/kcal) Nutritional Problem 1. Problem Problem Inadequate oral intake related to Etiology possible poor appetite/ confusion aeb Signs/Symptoms: PO intake ~25% of meals Intervention/Recommendation Comments 1. Continue regular diet as tolerated by patient 2. Encourage oral intake and provide assistance with meals as needed. 3. Provide Ensure Enlive ( [place]) with each meal to optimize calorie/protein intake. 4 Continue MVI supplementation due to impaired skin integrity. Expected Outcomes/Goals Expected Outcomes/Goals oral intake >75% of meals, weight stable, nutrition related labs WNL, improved skin integrity F/U MR 08/23-
[2019-08-27] MEDS: Multivitamin Tab PO SCH (08:38)
--- NOTE | 2019-08-27 22:52 | Progress Notes ---
DATE: 08/27/2019 SUBJECTIVE: Case was discussed with staff of the patient, reviewed records. Covering for Dr. Schulz. This 69-year-old male who was transferred from [facility] on a hold for being danger to self. The patient endorsed suicidal ideation with a plan to overdose on pills. He has a long history of alcohol abuse, homelessness, primary source of distress. He has been drinking over 20 years, unable to stop. The patient has been depressed. He is on a detox protocol. The patient continues to be depressed. He knows where he is and why he is here. He knows the year. He is not quite sure about the month. He is approaching his baseline. He will be going to [place] when he is ready or they have a placement for him. No side effects with the medication, no sedation, no nausea, and we will continue to outpatient group therapy, milieu therapy, and adjust medications as needed. JOB# [id number]
== END 2019-08-27 18:00 | DRG 885 ==
LOC: GERO 08-17 01:18
PROVIDERS: ADMIT Psychiatry & Neurology Psychiatry; ATTEND Psychiatry & Neurology Psychiatry
DX: F33.2 Major depressive disorder, recurrent severe without psychotic features (principal); R45.851 Suicidal ideations; F29 Unspecified psychosis not due to a substance or known physiological condition; F10.20 Alcohol dependence, uncomplicated; L89.319 Pressure ulcer of right buttock, unspecified stage; K59.00 Constipation, unspecified; N40.0 Benign prostatic hyperplasia without lower urinary tract symptoms; Z59.0 Homelessness
CPT/HCPCS: 74000-TC; 83036-90; 97530; X3904; Z7610